=== PATIENT | male | born 1985 | race Caucasian/White ===

== ENCOUNTER 2017-11-10 16:54 | Emergency (ER) | payer BC ==
[2017-11-10] MEDS ORDERED: Marcaine 0.5% SDV 10 ML IJ ONE (17:08)
[2017-11-10] MEDS ORDERED: BACIGUENT PACKET TP ONE (17:08)
[2017-11-10] MEDS ORDERED: Marcaine 0.5% SDV 10 ML ONE (17:10)
[2017-11-10 17:16] VITALS: O2SAT 98
--- NOTE | 2017-11-10 17:35 | ERPHSYRPT ---
- History of Present Illness Time Seen by Provider: 11/10/17 17:08 Source: patient Patient Subjective Stated Complaint: states dropped full can of paint on right foot. injury to second toe. Triage Nursing Assessment: to room per w/c. skin w/d, color normal. laceration and skin tear to second toe right foot. small amt bleeding. Physician History: CC: right foot injury Hx: 32 y/o patient of Dr Hankins. He was at home barefoot and dropped a paint can on his right foot. LAceration to right 2nd to. No other injuries. Tetanus up to date one year ago. Pain mild. Some bleeding. 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 Meds: Bystolic, lisinopril Occurred: just prior to arrival Lower Extremities Pain: 2nd toe: right Allergies/Adverse Reactions: amoxicillin Allergy (Verified 11/10/17 17:09) bacitracin Allergy (Verified 11/10/17 17:09) Home Medications: Lisinopril 20 mg [Zestril 20 MG] 20 mg PO DAILY 11/10/17 [History] Nebivolol HCl 5 MG [Bystolic 5 MG] 5 mg PO DAILY 11/10/17 [History] Hx Tetanus, Diphtheria Vaccination/Date Given: Yes Hx Influenza Vaccination/Date Given: No Hx Pneumococcal Vaccination/Date Given: No - Review of Systems Musculoskeletal: Injury (right foot), No Back Pain, No Neck Pain Skin: Skin Lesions (laceration right 2nd toe) - Past Medical History Pertinent Past Medical History: Yes Cardiac History: Hypertension - Past Surgical History Past Surgical History: No - Social History Smoking Status: Never smoker Exposure to second hand smoke: No Drug Use: none Patient Lives Alone: No - Nursing Vital Signs Nursing Vital Signs: Initial Vital Signs Temperature 9738 F 11/10/17 16:58 Pulse Rate 77 11/10/17 16:58 Respiratory Rate 16 11/10/17 16:58 Blood Pressure 159/101 11/10/17 16:58 O2 Sat by Pulse Oximetry 98 11/10/17 16:58 Pain Scale Pain Intensity 0 - Physical Exam General Appearance: alert Neck Exam: supple Cardiovascular/Respiratory Exam: regular rate/rhythm Neuro/Tendon Exam: normal sensation, normal motor functions Mental Status Exam: alert, oriented x 3, cooperative Skin Exam: warm, dry SpO2 Interpretation: normal SpO2: 98 Oxygen Delivery: Room Air Comments: Right foot 2nd toe has distal medial laceration one cm, partial medial nail involvement. No FB. Good cap refill. Small scrape across 1st MTP. No bony tenderness. Pedal pulse intact. Procedures - Laceration/Wound Repair right 2nd toe Wound Location: Right Wound Length (cm): 1.5 Wound's Depth, Shape: irregular, contused tissue Wound Explored: no foreign body noted Irrigated: Yes (copious ) Hibiclens Prep: Yes Anesthesia: digital block Wound Repaired With: sutures Suture Size/Type: 4-0, prolene Number of Sutures: 4 Sterile Dressing Applied?: Yes Splint Applied?: Yes Type of Splint Applied: Darco post op shoe Progress: 11/10/17 18:50 The wound on distal right 2nd toe is medial, contused tissue with true laceration. The nail is intact. The wound was irrigated. Closed with 4-0 prolene. Superfical skin avulsion more proximal was reapproximated using steri strips. Wound instr given. - Course Nursing assessment & vital signs reviewed: Yes - Radiology Exams right foot X-ray Interpretation: Reviewed by me, No Fracture (no FB) Ordered Tests: Active Orders 24 hr Category Date Time Status Wound Care STAT Care 11/10/17 17:08 Active FOOT (MINIMUM 3 VIEWS) Stat Exams 11/10/17 17:30 Taken Medication Summary Discontinued Medications Generic Name Dose Route Start Last Admin Trade Name Freq PRN Reason Stop Dose Admin Bacitracin 0.9 gm 11/10/17 17:08 11/10/17 17:47 Baciguent Packet TP 11/10/17 17:09 Not Given STAT ONE Bupivacaine HCl 5 ml 11/10/17 17:08 11/10/17 17:49 Marcaine 0.5% Sdv 10 Ml IJ 11/10/17 17:09 5 ml STAT ONE Administration Bupivacaine HCl Confirm 11/10/17 17:10 Marcaine 0.5% Sdv 10 Ml Administered 11/10/17 17:11 Dose 10 ml .ROUTE .STK-MED ONE - Progress Progress Note: 11/10/17 17:34 2ml 0.5% plain bupivicaine use for right 2nd toe digital block. Tolerated well. - Departure Time of Disposition: 18:51 Departure Disposition: Home Clinical Impression: Laceration of toe Qualifiers: Encounter type: initial encounter Toe: lesser toe Damage to nail status: with damage Foreign body presence: without foreign body Laterality: right Qualified Code(s): S91.214A - Laceration without foreign body of right lesser toe(s) with damage to nail, initial encounter Condition: Stable Critical Care Time: No Referrals: BETTY HANKINS [COURTESY STAFF] - Instructions: Toe Injury (DC), Laceration Repair With Stitches (DC) Additional Instructions: Darco post op shoe. Elevate foot. Change dressing daily. Report any sign of infection right away. Tylenol or ibuprofen as directed for discomfort. Suture removal in 10 days. LACERATION CARE 1. Do not use peroxide, merthiolate, alcohol, or betadine. 2. Keep wound clean and dry. 3. Change dressing if it becomes wet or soiled. 4. If you must work, wear protective covering. 5. You may return to the emergency department or see your family physician for suture removal. 6. See your family physician or return to the emergency department for any of the following signs or symptoms: A. Redness B. Swelling C. Discolored drainage D. Red streaks E. Elevated temperature F. Other signs of infection
[2017-11-10 18:54] VITALS: BP 148/104; PULSE 96
--- NOTE | 2017-11-11 08:52 | XRAY ---
Indication: Second toe injury. Comparison: None 3 nonweightbearing views of the right foot demonstrates small posterior heel spur and talonavicular accessory ossicles. No other bony, articular, or soft tissue abnormalities.
== END 2017-11-10 19:34 | disposition home or self-care (01) ==
LOC: ED 16:54
PROC: 0HQMXZZ Repair Right Foot Skin, External Approach (ICD-10-PCS; principal; 2017-11-10)
DX: S91.214A Laceration without foreign body of right lesser toe(s) with damage to nail, initial encounter (principal); W20.8XXA Other cause of strike by thrown, projected or falling object, initial encounter; Y92.9 Unspecified place or not applicable; I10 Essential (primary) hypertension
CPT/HCPCS: 12001; 73630; 99283